=== PATIENT | female | born 1990 | race Two or more races ===

== ENCOUNTER 2024-05-08 12:17 | Emergency (ER) | payer MEDICAID, OTHER ==
[~2024-05-08] VITALS: Ht 172.7 cm; Wt 73.0 kg
--- NOTE | 2024-05-08 12:35 | ED.PDOC ---
HPI (NEURO) HPI Comments 34 y.o female presents to the ED for a chief complaint of dizziness associated with palpitations and right arm numbness that started 30 minutes prior to arrival. Patient reports she was at home having a conversation with her daughter when symptoms presented. Per daughter, patient was not making sense during conversation. Patient is currently 8 weeks gestation, denies any vaginal bleeding, cramping, pain, nausea, or vomiting. Patient reports previous c/o of dizziness during her last and was diagnosed with preeclampsia. Patient at this time denies any lower extremity numbness, tingling sensation, facial droop, slurred speech, confusion. Patient is alert and orientated x 4. 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 ) Family History Family History: Reviewed,noncontributory to illness Social History Smoker: Non-Smoker Alcohol: Denies ETOH Use Drugs: Denies Drug Use Lives In: Home Constitutional: denies: chills, diaphoresis, fatigue, fever, malaise, sweats, weakness, others EENTM: denies: blurred vision, double vision, ear bleeding, ear discharge, ear drainage, ear pain, ear ringing, eye pain, eye redness, hearing loss, mouth pain, mouth swelling, nasal discharge, nose bleeding, nose congestion, nose pain, photophobia, tearing, throat pain, throat swelling, voice changes, others Respiratory: denies: cough, hemoptysis, orthopnea, SOB at rest, shortness of breath, SOB with excertion, stridor, wheezing, others Cardiovascular: reports: palpitations; denies: chest pain, dizzy spells, diaphoresis, Dyspnea on exertion, edema, irregular heart beat, left arm pain, lightheadedness, PND, syncope, others Gastrointestinal: denies: abdomen distended, abdominal pain, blood streaked bowels, constipated, diarrhea, dysphagia, difficulty swallowing, hematemesis, melena, nausea, poor appetite, poor fluid intake, rectal bleeding, rectal pain, vomiting, others Genitourinary: denies: abnormal vagina bleeding, burning, dyspareunia, dysuria, flank pain, frequency, hematuria, incontinence, pain, , vagina discharge, urgency, others Neurological: reports: dizziness, numbness (right arm ), speech problems; denies: fainting, headache, left sided numbness, left sided weakness, paresthesia, pre-existing deficit, right sided numbness, right sided weakness, seizure, tingling, tremors, weakness, others Musculoskeletal: denies: back pain, gout, joint pain, joint swelling, muscle pain, muscle stiffness, neck pain, others Integumetry: denies: bruises, change in color, change in hair/nails, dryness, laceration, lesions, lumps, rash, wounds, others Allergic/Immunocompromised: denies: Difficulty Healing, Frequent Infections, Hives, Itching, others Hematologic/Lymphatic: denies: anemia, blood clots, easy bleeding, easy bruising, swollen glands, others Endocrine: denies: excessive hunger, excessive sweating, excessive thirst, excessive urination, flushing, intolerance to cold, intolerance to heat, unexplained weight gain, unexplained weight loss, others Psychiatric: denies: anxiety, bipolar disorder, depression, hopeless, panic disorder, schizophrenia, sleepless, suicidal, others All Other Systems: Reviewed and Negative Physical Exam General Appearance: No Apparent Distress HEENT: Normal ENT Inspection, Pharynx Normal, TMs Normal Neck: Full Range of Motion, Non-Tender, Normal, Normal Inspection Respiratory: Chest Non-Tender, Lungs Clear, No Accessory Muscle Use, No Respiratory Distress, Normal Breath Sounds Cardiovascular: No Edema, No JVD, No Murmur, No Gallop, Normal Peripheral Pulses, Regular Rate/Rhythm Breast Exam: Deferred Gastrointestinal: No Organomegaly, Non Tender, No Pulsatile Mass, Normal Bowel Sounds, Soft Genitalia: Deferred Pelvic: Deferred Rectal: Deferred Extremities: No calf tenderness, Normal capillary refill, Normal inspection, Normal range of motion, Non-tender, No pedal edema Musculoskeletal : Apperance: Normal Neurologic: Alert, large sheetfed press operator II-XII nml as Tested, No Motor Deficits, Normal Affect, Normal Mood, No Sensory Deficits Cerebellar Function: Normal Reflexes: Normal Skin: Dry, Normal Color, Warm Lymphatic: No Adenopathy EKG EKG : Pulse Rate (adult): 102 Cardiac Rhythm: ST Hypertrophy: LAE Was a procedure done? Was a procedure done?: No Differential Diagnosis (SZ) Seizure: N/A CVA: CVA, TIA General Weakness: Dehydration, Electrolyte imbalance, Other ( ) X-Ray, Labs, Meds, VS Vital Signs Date Time Temp Pulse Resp B/P (MAP) Pulse Ox O2 Delivery O2 Flow Rate FiO2 05/08/24 17:21 97.3 105 16 135/93 (107) 99 97.3 05/08/24 16:06 97.7 05/08/24 15:15 97.9 100 16 130/85 (100) 97 97.9 05/08/24 15:15 100 16 97 Room Air 05/08/24 15:06 98.9 05/08/24 12:38 97.8 101 18 136/90 (105) 99 05/08/24 12:36 102 05/08/24 12:24 102 Lab Test 05/08/24 14:58 05/08/24 13:04 Range/Units Urine Color Light-yellow Yellow Urine Clarity Clear Clear Urine pH 5.5 5.0-9.0 Urine Specific [place] 1.028 1.001-1.035 Urine Protein Trace H Negative Urine Ketones Negative Negative Urine Blood Negative Negative /uL Urine Nitrite Negative Negative Urine Bilirubin Negative Negative Urine Urobilinogen Normal Negative mg/dL Urine Leukocyte Esterase Negative Negative /uL Urine RBC 2 0 - 4 /hpf Urine WBC 1 0 - 5 /hpf Urine Squamous Epithelial Cells Few <5 /hpf Urine Bacteria None seen None Seen /hpf Urine Mucus Few None Seen Urine Glucose Normal Normal mg/dL White Blood Count 9.6 4.4-10.8 10^3/uL Red Blood Count 4.53 4.0-5.20 10^6/uL Hemoglobin 14.2 12.2-16.2 g/dL Hematocrit 40.7 36.0-46.0 % Mean Corpuscular Volume 89.8 80.0-100.0 fL Mean Corpuscular Hemoglobin 31.4 28.0-32.0 pg Mean Corpuscular Hemoglobin Concent 34.9 32.0-36.0 g/dL Red Cell Distribution Width 13.4 11.8-14.3 % Platelet Count 285 140-450 10^3/uL Mean Platelet Volume 7.9 6.9-10.8 fL Neutrophils (%) (Auto) 73.6 37.0-80.0 % Lymphocytes (%) (Auto) 20.6 10.0-50.0 % Monocytes (%) (Auto) 4.8 0.0-12.0 % Eosinophils (%) (Auto) 0.4 0.0-7.0 % Basophils (%) (Auto) 0.6 0.0-2.0 % Neutrophils # (Auto) 7.1 1.6-8.6 10 ^3/uL Lymphocytes # (Auto) 2.0 0.4-5.4 10 ^3/uL Monocytes # (Auto) 0.5 0-1.3 10 ^3/uL Eosinophils # (Auto) 0 0-0.8 10 ^3/uL Basophils # (Auto) 0.1 0-0.2 10 ^3/uL Nucleated Red Blood Cells 0.0 % Sodium Level 137 136-145 mmol/L Potassium Level 4.2 3.5-5.1 mmol/L Chloride Level 106 98-107 mmol/L Carbon Dioxide Level 26 20-31 mmol/L Anion Gap 5 5-15 Blood Urea Nitrogen 8 L 9-23 mg/dL Creatinine 0.66 0.550-1.02 mg/dL Glomerular Filtration Rate Calc 119 >90 mL/min BUN/Creatinine Ratio 12.1 10.0-20.0 Serum Glucose 108 H 74-106 mg/dL Calcium Level 9.9 8.7-10.4 mg/dL Beta HCG, Quantitative 18067.6 H 1.5-4.2 mIU/mL Current Medications Medications (Trade) Dose Ordered Sig/Clara Route Start Time Stop Time Status Last Admin Acetaminophen (Tylenol Tablet) 650 mg ONCE ONCE PO 05/08/24 15:00 05/08/24 15:01 DC 05/08/24 15:06 The patient was given acetaminophen 650 mg by mouth The CBC and chemistry panel [place] [address].6 The urine test is negative for infection At this time, the patient states that she is feeling better The patient seems to be somewhat dehydrated and is being discharged at this time We will the patient will return to the emergency department's the condition worsens. Time of 1ST Reevaluation: 12:30 Reevaluation 1ST: Unchanged Patient Education/Counseling: Diagnosis, Treatment, Prognosis, Need For Follow Up Family Education/Counseling: No Family Present Departure 1 Departure Time of Disposition: 17:24 Impression: Primary Impression: Dizziness Additional Impressions: Qualified Codes: Z34.90 - Encounter for supervision of normal , unspecified, unspecified trimester Dehydration Disposition: 01 HOME / SELF CARE / HOMELESS Condition: Fair Discharged With: Self Critical Care Note Critical Care Time?: No Stability Stability form required: No I personally scribed for WU TROY MD ([email or web address]) on 05/08/24 at 12:35. Electronically submitted by Maura Schreiber (Contentful). I personally scribed for WU TROY MD ([email or web address]) on 05/08/24 at 12:36. Electronically submitted by Maura Schreiber (Contentful). WU TROY MD May 08, 2024 12:35
[2024-05-08 13:21] LABS: Basophils # (auto) 0.1 10 ^3/uL (0-0.2); Basophils % (auto) 0.6 % (0.0-2.0); Eosinophils # (auto) 0 10 ^3/uL (0-0.8); Eosinophils % (auto) 0.4 % (0.0-7.0); Hematocrit 40.7 % (36.0-46.0); Hemoglobin 14.2 g/dL (12.2-16.2); Lymphocytes % (auto) 20.6 % (10.0-50.0); Mean Corpuscular Hemoglobin 31.4 pg (28.0-32.0); Mean Corpuscular Hgb Conc. 34.9 g/dL (32.0-36.0); Mean Corpuscular Volume 89.8 fL (80.0-100.0); Monocytes # (auto) 0.5 10 ^3/uL (0-1.3); Monocytes % (auto) 4.8 % (0.0-12.0); Neutrophils # (auto) 7.1 10 ^3/uL (1.6-8.6); Neutrophils % (auto) 73.6 % (37.0-80.0); Platelet Count (auto) 285 10^3/uL (140-450); Red Blood Cells 4.53 10^6/uL (4.0-5.20); Red Cell Distribution Width 13.4 % (11.8-14.3); White Blood Cell 9.6 10^3/uL (4.4-10.8)
[2024-05-08 13:37] LABS: Chloride 106 mmol/L (98-107); Potassium 4.2 mmol/L (3.5-5.1); Sodium 137 mmol/L (136-145)
[2024-05-08 13:38] LABS: Anion Gap 5 (5-15); Calcium 9.9 mg/dL (8.7-10.4); Carbon Dioxide 26 mmol/L (20-31)
[2024-05-08 13:43] LABS: BUN/Creatinine Ratio 12.1 (10.0-20.0); Blood Urea Nitrogen 8 mg/dL (9-23); Glucose 108 mg/dL (74-106)
--- NOTE | 2024-05-08 14:58 | DVH ---
OB ULTRASOUND <14 WEEKS: HISTORY: weakness TECHNIQUE: Multiple real-time grayscale sonographic images of the pelvis with duplex Doppler color f low, spectral and M-mode analysis. TRANSDUCERS: Transabdominal and endovaginal FINDINGS: The uterus measures 9 7 x 8.4 x 6.4 cm. The cervix contains trace free fluid Right ovary measures 4.1 x 3.3 x 2.5 cm with normal Doppler color flow Left ovary measures 2.9 x 2.8 x 2.1 cm with normal Doppler color flow IUP single live fetus at 6 weeks 5 days average ultrasound age based on mean crown-rump length of 0.7 8 cm and gestational sac size of 2.12 cm heart rate detected at 134 beats per minute. Yolk sac is present. Amniotic fluid subjectively within normal limits Elsa-gestational space: Crescentic hypoechoic structure adjacent to the gestational sac measuring 2.1 x 0.9 x 0.8 cm, consistent with subchorionic hemorrhage. IMPRESSION: 1. IUP single live fetus 6 weeks 5 days AUA corresponding to an DEBORA of 12/27/2024. 2. Subchorionic hemorrhage measuring up to 2.1 cm. 3. Trace free fluid in the cervix. HS:Y
[2024-05-08] MEDS: ACETAMINOPHEN 325 MG TAB PO ONE (15:06)
[2024-05-08 16:00] LABS: Urine Bacteria None Seen /hpf (None Seen)
[2024-05-08 16:17] LABS: Urine Blood Negative /uL (Negative); Urine Clarity Clear (Clear); Urine Color Light-Yellow (Yellow); Urine Mucus FEW (None Seen); Urine Protein, UAD TRACE (Negative); Urine Specific Gravity 1.028 (1.001-1.035); Urine Urobilinogen Normal (Negative); Urine WBC 1 /hpf (0 - 5); Urine pH 5.5 (5.0-9.0)
[2024-05-08 17:21] VITALS: BP 135/93; PULSE 105; RESP 16; TEMP 97.3; O2SAT 99
--- NOTE | 2024-05-11 13:13 | ECG ---
[facility] Test Date: 2024-05-08 Test Time: 12:24:50 Pat Name: SILVER HUFFMAN Department: ER Room: Gender: F Financial Services Officer: DARNELL : 1990 Requested By: WU TROY Order Number: [id number] Reading MD: Measurements Intervals [place] Rate: 102 P: 58 DE: 145 QRS: 40 QRSD: 92 T: -3 QT: 341 QTc: 445 Interpretive Statements Sinus tachycardia Consider left atrial enlargement Baseline wander in lead(s) III Please click the below link to view image of tracing.
== END 2024-05-08 17:46 | disposition home or self-care (01) ==
LOC: ER 12:17
DX: O99.281 Endocrine, nutritional and metabolic diseases complicating pregnancy, first trimester (principal); R10.2 Pelvic and perineal pain; O20.8 Other hemorrhage in early pregnancy; E86.0 Dehydration; R00.0 Tachycardia, unspecified; R00.2 Palpitations; R42 Dizziness and giddiness; Z3A.08 8 weeks gestation of pregnancy
CPT/HCPCS: 36415; 76801; 80048; 81001; 84702; 85025; 93005

== ENCOUNTER 2024-09-15 16:32 | Observation (INO) | payer MEDICAID ==
[~2024-09-15] VITALS: Ht 152.4 cm; Wt 72.6 kg
--- NOTE | 2024-09-15 17:25 | DVH ---
OB ULTRASOUND, LIMITED CLINICAL INDICATION: no pnc TECHNIQUE: Multiple grayscale ultrasound and M-mode images were obtained of the pelvis for evaluation of intrauterine . COMPARISON: None FINDINGS: A single living fetus is seen in cephalic presentation. Biparietal diameter: 6.1 cm (24 weeks, 6 days) Head Circumference: 22.5 cm (24 weeks, 4 days) Abdomen Circumference: 20.3 cm (24 weeks, 6 days) Femur Length: 4.5 cm (25 weeks, 6 days) Estimated weight: 743.6 grams (+/- 111 grams). Placenta: Posterior. Amniotic fluid: Visibly normal. Cervical length is 3.9 cm and closed. heart rate: 142 beats/min. A complete anatomic survey was not performed on this exam. IMPRESSION: Single living intrauterine with an estimated gestational age of 24 weeks, 6 days, corresp onding to an estimated date of delivery of 12/30/2024.
--- NOTE | 2024-09-15 18:51 | DVH ---
RIGHT UPPER QUADRANT ABDOMINAL ULTRASOUND CLINICAL HISTORY: RUQ pain r/o gallstones COMPARISON: None TECHNIQUE: Grayscale and color Doppler ultrasound imaging of the right upper quadrant is performed. FINDINGS: Pancreas: Visualized portions appear grossly unremarkable. Liver: No discrete hepatic lesions as visualized. The portal vein appears patent. Gallbladder: No sizable, shadowing gallstones. No gallbladder wall thickening. No sonographic cornell' s sign. Common bile duct: Nondilated. Right Kidney: Measures 12.5 cm in length. Mild right hydronephrosis. Right upper quadrant Inferior vena cava: Visualized portions are grossly patent. IMPRESSION: No sonographic evidence of cholelithiasis or cholecystitis. Mild right hydronephrosis.
[2024-09-15 18:53] LABS: Basophils # (auto) 0.1 10 ^3/uL (0-0.2); Basophils % (auto) 0.8 % (0.0-2.0); Eosinophils # (auto) 0 10 ^3/uL (0-0.8); Eosinophils % (auto) 0.3 % (0.0-7.0); Hematocrit 34.3 % (36.0-46.0); Hemoglobin 11.9 g/dL (12.2-16.2); Lymphocytes # (auto) 1.9 10 ^3/uL (0.4-5.4); Lymphocytes % (auto) 18.7 % (10.0-50.0); Mean Corpuscular Hemoglobin 31.7 pg (28.0-32.0); Mean Corpuscular Hgb Conc. 34.6 g/dL (32.0-36.0); Mean Corpuscular Volume 91.6 fL (80.0-100.0); Monocytes # (auto) 0.4 10 ^3/uL (0-1.3); Monocytes % (auto) 4.4 % (0.0-12.0); Neutrophils # (auto) 7.6 10 ^3/uL (1.6-8.6); Neutrophils % (auto) 75.8 % (37.0-80.0); Platelet Count (auto) 283 10^3/uL (140-450); Red Blood Cells 3.74 10^6/uL (4.0-5.20); Red Cell Distribution Width 13.7 % (11.8-14.3); White Blood Cell 10.1 10^3/uL (4.4-10.8)
[2024-09-15 18:55] LABS: Urine Bacteria None Seen /hpf (None Seen)
[2024-09-15 19:07] LABS: Urine Blood Negative /uL (Negative); Urine Clarity Clear (Clear); Urine Color Light-Yellow (Yellow); Urine Protein, UAD Negative (Negative); Urine Specific Gravity 1.011 (1.001-1.035); Urine Squamous Epithelial Cell FEW /hpf (<5); Urine Urobilinogen Normal (Negative); Urine WBC 1 /HPF (0-5)
[2024-09-15 19:09] LABS: Protein, Urine 6.7 mg/dL (1-14)
[2024-09-15 19:10] LABS: Alkaline Phosphatase 71 U/L (46-116); Anion Gap 10 (5-15); BUN/Creatinine Ratio 11.1 (10.0-20.0); Calcium 9.4 mg/dL (8.7-10.4); Carbon Dioxide 21 mmol/L (20-31); Glucose 77 mg/dL (74-106); Sodium 141 mmol/L (136-145); Total Protein 6.3 g/dL (5.7-8.2); Uric Acid 3.3 mg/dL (3.1-7.8)
[2024-09-15 19:12] LABS: Creatinine, Urine 59.24 mg/dL (30.0-125.0); Urine Protein/Creatinine Ratio 0.11
[2024-09-15 19:13] LABS: INR 0.94 (0.9-1.15); Partial Thromboplastin Time 28.6 SEC (24.5-34.5)
[2024-09-15 19:15] LABS: Amphetamine Screen, Urine Neg (NEGATIVE); Barbiturate Scree,Urine Neg (NEGATIVE); Benzodiazephine Screen, Urine Neg (NEGATIVE); Cannabinoid Screen, Urine Neg (NEGATIVE); Cocaine Screen, Urine Neg (NEGATIVE); Opiate Scree,Urine Neg (NEGATIVE); Phencyclidine Screen, Urine Neg (NEGATIVE)
[2024-09-15 19:16] LABS: Alanine Aminotransferase < 9 U/L (7-40); Aspartate Aminotransferase < 8 U/L (13-40); Bilirubin, Total 0.2 mg/dL (0.2-1.0); Blood Urea Nitrogen 5 mg/dL (9-23); Chloride 110 mmol/L (98-107); Potassium 3.4 mmol/L (3.5-5.1)
[2024-09-15] MEDS ORDERED: PREN-96 PO (20:25)
--- NOTE | 2024-09-15 23:43 | DVHDS2 ---
Physician Discharge Progress N Final Diagnosis: no care RUQ pain after meals Operations or Procedures: Operations or Procedures S: 34yo IUP@26.5wks presents to OB triage from ED with c/o RUQ abdominal pain after meals, dizziness, and blurry vision. No care, except visits to ED for this . Has hx of preE. Denies LOF/VB/TIPTON. Endorses +FM. O: VSS, normotensive NST reactive Laboratory Tests Test 09/15/24 17:45 09/15/24 18:39 Range/Units Urine Color Light-yellow Yellow Urine Clarity Clear Clear Urine pH 6.0 5.0-9.0 Urine Specific [place] 1.011 1.001-1.035 Urine Protein Negative Negative Urine Ketones Negative Negative Urine Blood Negative Negative /uL Urine Nitrite Negative Negative Urine Bilirubin Negative Negative Urine Urobilinogen Normal Negative mg/dL Urine Leukocyte Esterase Negative Negative /uL Urine RBC 1 0 - 4 /hpf Urine Microscopic WBC 1 0-5 /HPF Urine Squamous Epithelial Cells Few <5 /hpf Urine Bacteria None seen None Seen /hpf Urine Creatinine 59.24 30.0-125.0 mg/dL Urine Protein/Creatinine Ratio 0.11 Urine Glucose Normal Normal mg/dL Urine Total Protein 6.7 1-14 mg/dL Urine Opiates Screen Neg NEGATIVE Urine Fentanyl Screen Neg NEGATIVE Urine Barbiturates Screen Neg NEGATIVE Urine Phencyclidine Screen Neg NEGATIVE Urine Amphetamines Screen Neg NEGATIVE Urine Benzodiazepines Screen Neg NEGATIVE Urine Cocaine Screen Neg NEGATIVE Urine Cannabinoids Screen Neg NEGATIVE White Blood Count 10.1 4.4-10.8 10^3/uL Red Blood Count 3.74 L 4.0-5.20 10^6/uL Hemoglobin 11.9 L 12.2-16.2 g/dL Hematocrit 34.3 L 36.0-46.0 % Mean Corpuscular Volume 91.6 80.0-100.0 fL Mean Corpuscular Hemoglobin 31.7 28.0-32.0 pg Mean Corpuscular Hemoglobin Concent 34.6 32.0-36.0 g/dL Red Cell Distribution Width 13.7 11.8-14.3 % Platelet Count 283 140-450 10^3/uL Mean Platelet Volume 8.1 6.9-10.8 fL Neutrophils (%) (Auto) 75.8 37.0-80.0 % Lymphocytes (%) (Auto) 18.7 10.0-50.0 % Monocytes (%) (Auto) 4.4 0.0-12.0 % Eosinophils (%) (Auto) 0.3 0.0-7.0 % Basophils (%) (Auto) 0.8 0.0-2.0 % Neutrophils # (Auto) 7.6 1.6-8.6 10 ^3/uL Lymphocytes # (Auto) 1.9 0.4-5.4 10 ^3/uL Monocytes # (Auto) 0.4 0-1.3 10 ^3/uL Eosinophils # (Auto) 0 0-0.8 10 ^3/uL Basophils # (Auto) 0.1 0-0.2 10 ^3/uL Nucleated Red Blood Cells 0.0 % Prothrombin Time 10.0 9.3-11.8 sec Prothrombin Time INR 0.94 0.9-1.15 Activated Partial Thromboplast Time 28.6 24.5-34.5 SEC Sodium Level 141 136-145 mmol/L Potassium Level 3.4 L 3.5-5.1 mmol/L Chloride Level 110 H 98-107 mmol/L Carbon Dioxide Level 21 20-31 mmol/L Anion Gap 10 5-15 Blood Urea Nitrogen 5 L 9-23 mg/dL Creatinine 0.45 L 0.550-1.02 mg/dL Glomerular Filtration Rate Calc 131 >90 mL/min BUN/Creatinine Ratio 11.1 10.0-20.0 Serum Glucose 77 74-106 mg/dL Uric Acid 3.3 3.1-7.8 mg/dL Calcium Level 9.4 8.7-10.4 mg/dL Total Bilirubin 0.2 0.2-1.0 mg/dL Aspartate Amino Transferase (AST) < 8 L 13-40 U/L Alanine Aminotransferase (ALT) < 9 7-40 U/L Alkaline Phosphatase 71 46-116 U/L Total Protein 6.3 5.7-8.2 g/dL Albumin 4.0 3.2-4.8 g/dL A: 34yo IUP@26.5wks RUQ pain after meals No care P: D/C home Avoid fatty and spicy foods FKC/PreE/PTL precautions reviewed Dr. Sanders consulted, agrees with POC and establishing care at [facility]. Other Interventions Other Interventions [place] [id number] Ph: [phone] DIAGNOSTIC IMAGING Diagnostic Imaging Report : [id number] Signed PATIENT: SILVER HUFFMAN JACCT: [id number] UNIT: [id number] : 1990 LOC: [facility] ROOM / BED: TRIAGE2 / A AGE / SEX: 34 / F ADM STATUS: ADM IN SERVICE 1640 ORDERING PHYSICIAN: PHIL SEN CNM PROCEDURE(s): OBUS - OB ULTRASOUND COMP GTR 14 WKS REASON: no pnc ORDER NUMBER(s): [id number], ACCESSION NUMBER(s): [id number] OB ULTRASOUND, LIMITED CLINICAL INDICATION: no pnc TECHNIQUE: Multiple grayscale ultrasound and M-mode images were obtained of the pelvis for evaluation of intrauterine . COMPARISON: None FINDINGS: A single living fetus is seen in cephalic presentation. Biparietal diameter: 6.1 cm (24 weeks, 6 days) Head Circumference: 22.5 cm (24 weeks, 4 days) Abdomen Circumference: 20.3 cm (24 weeks, 6 days) Femur Length: 4.5 cm (25 weeks, 6 days) Estimated weight: 743.6 grams (+/- 111 grams). Placenta: Posterior. Amniotic fluid: Visibly normal. Cervical length is 3.9 cm and closed. heart rate: 142 beats/min. A complete anatomic survey was not performed on this exam. IMPRESSION: Single living intrauterine with an estimated gestational age of 24 weeks, 6 days, corresponding to an estimated date of delivery of 12/30/2024. ATED BY: AILYN RANGEL MD DICTATED DATE/TIME: 09/15/241721 SIGNED BY: AILYN RANGEL MD SIGNED DATE/TIME: 09/15/241721 CC: Consultations: Consultations [place] [phone] Ph: [phone] DIAGNOSTIC IMAGING Diagnostic Imaging Report : [id number] Signed PATIENT: SILVER HUFFMAN JACCT: [id number] UNIT: [id number] : 1990 LOC: LD ROOM / BED: TRIAGE2 / A AGE / SEX: 34 / F ADM STATUS: ADM IN SERVICE 1737 ORDERING PHYSICIAN: PHIL SEN CNM PROCEDURE(s): ABDL - ABDOMEN LIMITED REASON: RUQ pain r/o gallstones ORDER NUMBER(s): [id number], ACCESSION NUMBER(s): [id number] RIGHT UPPER QUADRANT ABDOMINAL ULTRASOUND CLINICAL HISTORY: RUQ pain r/o gallstones COMPARISON: None TECHNIQUE: Grayscale and color Doppler ultrasound imaging of the right upper quadrant is performed. FINDINGS: Pancreas: Visualized portions appear grossly unremarkable. Liver: No discrete hepatic lesions as visualized. The portal vein appears patent. Gallbladder: No sizable, shadowing gallstones. No gallbladder wall thickening. No sonographic cornell's sign. Common bile duct: Nondilated. Right Kidney: Measures 12.5 cm in length. Mild right hydronephrosis. Right upper quadrant Inferior vena cava: Visualized portions are grossly patent. IMPRESSION: No sonographic evidence of cholelithiasis or cholecystitis. Mild right hydronephrosis. ATED BY: MANUEL LEE MD DICTATED DATE/TIME: 09/15/241847 SIGNED BY: MANUEL LEE MD SIGNED DATE/TIME: 09/15/241847 CC: Condition on Discharge: Stable Disposition: Home Discharge Instructions: Diet: Regular Activity: No Restrictions, As Tolerated Follow Up/Referral: Please follow up with Dr. Sanders on , 09[facility]17/[facility] at [facility]. Address: [address] [place] [address] Phone: Medications: see med list Follow Up Care: Specialist: f/u with Dr. Sanders at [facility] on 09/17/24 at 0900 to establish OB care Discharge Statement: "Patient was advised to return to the ER or call 911 if any headaches, dizziness, shortness of breath, chest pain, abdominal pain, bleeding, fevers, or worsening of medical condition. Patient was counseled about treatment plan, medications, possible side effects, patientverbalized understanding. All questions were answered to the best of my ability. This discharge took greater then 30 minutes in planning, reviewing documentation, counseling the patient, and discussing with other team members." Visit Coding OBGYN Date of Service: Sep 15, 2024 Billing Provider: PHIL SEN CNM SENIOR SAFETY SUPPORT MANAGER Common Visit Codes: 02891-[id number] OBS CARE (HIGH) SENIOR SAFETY SUPPORT MANAGER Procedure Codes: 15087-00- NON-STRESS TEST PHIL SEN CNM Sep 15, 2024 23:43
== END 2024-09-15 20:43 | disposition home or self-care (01) ==
LOC: LDRP 16:32
PROVIDERS: ADMIT Obstetrics & Gynecology; ATTEND Obstetrics & Gynecology
DX: O09.32 Supervision of pregnancy with insufficient antenatal care, second trimester (principal); O26.892 Other specified pregnancy related conditions, second trimester; R10.11 Right upper quadrant pain; R42 Dizziness and giddiness; Z3A.26 26 weeks gestation of pregnancy; Z79.899 Other long term (current) drug therapy
CPT/HCPCS: 36415; 59025; 76705; 76805; 80053; 80307; 81001; 81002; 82570; 84156; 84550; 85025; 85610; 85730; 94760; 96360; 96361; G0378